=== PATIENT | male | born 1950 | race Caucasian/White ===

== ENCOUNTER 2021-03-13 20:01 | Inpatient (IN) | payer MEDICARE, OTHER ==
[~2021-03-13 20:01] MED LIST: CRESTOR40 MG PO; FLOMAX0.4 MG PO; GABAPENTIN600 MG PO; LISINOPRIL40 MG PO; LITHIUM300 MG PO; OXYBUTYNIN CHLO10 MG PO; OXYCONTIN20 MG PO; PERCOCET 10-321 EACH PO; VOLTAREN **OUT50 MG PO
[2021-03-13 20:34] LABS: BASOPHIL 0.3 % (0-2); EOSINOPHIL 0.6 % (0-7); HCT 36.5 % (42.0-52.0); HGB 11.4 g/dl (13.2-18.0); LYMPHOCYTE 4.5 % (15-48); MCH 30.8 pg (25.0-31.0); MCHC 31.2 g/dL (32.0-36.0); MCV 98.6 fL (78.0-100.0); MONOCYTE 4.1 % (0-12); MPV 9.5 fL (6.0-9.5); NEUTROPHIL 90.2 % (41-80); NRBC 0; PLT 225 K/uL (150-400)
[2021-03-13 20:35] LABS: WBC 10.5 K/uL (4.0-10.5)
[2021-03-13 20:45] LABS: INR 1.08 (0.9-1.2); PROTHROMBIN TIME 13.3 SECONDS (11.4-13.6)
[2021-03-13 20:51] LABS: ALBUMIN 3.5 g/dL (3.4-5.0); BILIRUBIN - TOTAL 0.6 mg/dL (0.2-1.0); BUN/CREAT RATIO (CALC) 17.7 RATIO; CREATININE 2.15 mg/dL (0.67-1.17); GLOBULIN (CALCULATION) 2.7 g/dL; MAGNESIUM 2.8 mg/dL (1.8-2.4); TOTAL PROTEIN 6.2 g/dL (6.4-8.2)
[2021-03-13 20:56] LABS: BILIRUBIN NEGATIVE (NEGATIVE); BLOOD TRACE-LYSED Ery/uL (NEGATIVE); CLARITY CLEAR (CLEAR); COLOR YELLOW (YELLOW); GLUCOSE (U) NORMAL (NORMAL); LEUKOCYTES NEGATIVE Leu/uL (NEGATIVE); NITRITE NEGATIVE (NEGATIVE); PROTEIN TRACE (LOW) mg/dL (NEGATIVE); SPECIFIC GRAVITY <=1.005 (1.001-1.030); UROBILINOGEN 0.2 mg/dL (0.2-1.0)
[2021-03-13 20:59] LABS: SQUAMOUS EPITHELIAL CELLS RARE
[2021-03-13 21:00] LABS: LACTIC ACID 2.3 mmol/L (0.4-1.9)
[2021-03-14] MEDS ORDERED: NEURONTIN300 MG PO (04:35)
[2021-03-14] MEDS ORDERED: VOLTAREN **OUT50 MG PO (04:37)
[2021-03-14] MEDS ORDERED: OXYCONTIN20 MG PO (04:37)
[2021-03-14] MEDS ORDERED: PRINIVIL20 MG PO (04:38)
[2021-03-14] MEDS ORDERED: DITROPAN5 MG PO (04:39)
[2021-03-14] MEDS ORDERED: TROKENDI XR100 MG PO (04:42)
[2021-03-14] MEDS ORDERED: LITHIUM300 MG PO (04:42)
[2021-03-14] MEDS ORDERED: PEPCID AC20 MG PO (04:42)
[2021-03-14] MEDS ORDERED: TRAZODONE HCL150 MG PO (04:43)
[2021-03-14] MEDS ORDERED: CRESTOR40 MG PO (04:43)
[2021-03-14 06:01] LABS: BASOPHIL 0.2 % (0-2); EOSINOPHIL 0.1 % (0-7); HCT 37.9 % (42.0-52.0); HGB 12.3 g/dl (13.2-18.0); LYMPHOCYTE 2.5 % (15-48); MCH 31.1 pg (25.0-31.0); MCHC 32.5 g/dL (32.0-36.0); MCV 95.9 fL (78.0-100.0); MONOCYTE 8.6 % (0-12); MPV 9.6 fL (6.0-9.5); NEUTROPHIL 87.8 % (41-80); NRBC 0; PLT 376 K/uL (150-400); RBC 3.95 M/uL (4.70-6.00); RDW 14.1 % (11.5-14.0)
[2021-03-14 06:06] LABS: WBC 29.3 K/uL (4.0-10.5)
[2021-03-14 06:20] LABS: ALBUMIN 2.9 g/dL (3.4-5.0); BILIRUBIN - TOTAL 0.5 mg/dL (0.2-1.0); BUN/CREAT RATIO (CALC) 18.3 RATIO; CREATININE 1.31 mg/dL (0.67-1.17); GLOBULIN (CALCULATION) 2.6 g/dL; POTASSIUM 3.5 mmol/L (3.5-5.1); TOTAL PROTEIN 5.5 g/dL (6.4-8.2)
--- NOTE | 2021-03-15 10:50 | NUR ---
Mr and Mrs Siddiqui share a home together. Mr. Siddiqui is a . He is followed by Dr. Blankenship and at [facility]. He has a rw, cane, scooter, and elevated commode. Spouse reports the home to be handicapped accessible. - The rigoberto were edcated to Aid and Attendance through [facility]. - Mr. Siddiqui was transferred to [facility].
== END 2021-03-14 22:21 | disposition other institution (70) | DRG 871 ==
LOC: FER 20:01 → FICU 22:04
PROVIDERS: Emergency Medicine; Nurse Practitioner; ADMIT Internal Medicine
PROC: 05H533Z Insertion of Infusion Device into Right Subclavian Vein, Percutaneous Approach (ICD-10-PCS; principal; 2021-03-13)
PROC: 3E033XZ Introduction of Vasopressor into Peripheral Vein, Percutaneous Approach (ICD-10-PCS; 2021-03-13)
DX: A41.9 Sepsis, unspecified organism (principal); R65.21 Severe sepsis with septic shock; G03.9 Meningitis, unspecified; I69.351 Hemiplegia and hemiparesis following cerebral infarction affecting right dominant side; N17.9 Acute kidney failure, unspecified; I95.9 Hypotension, unspecified; T43.595A Adverse effect of other antipsychotics and neuroleptics, initial encounter; F39 Unspecified mood [affective] disorder; Z96.643 Presence of artificial hip joint, bilateral; Z20.822 Contact with and (suspected) exposure to COVID-19; F01.50 Vascular dementia, unspecified severity, without behavioral disturbance, psychotic disturbance, mood disturbance, and anxiety; E86.0 Dehydration; I11.0 Hypertensive heart disease with heart failure; I50.9 Heart failure, unspecified; E78.00 Pure hypercholesterolemia, unspecified; I48.91 Unspecified atrial fibrillation; R19.7 Diarrhea, unspecified; K82.8 Other specified diseases of gallbladder; Z98.890 Other specified postprocedural states; Z79.899 Other long term (current) drug therapy
CPT/HCPCS: 36415; 36600; 70450; 71045; 71250; 76705; 80053; 80178; 81001; 82140; 82803; 83605; 83735; 84100; 84145; 84484; 85025; 85610; 85730; 87040; 87088; 93005; 94010; 96365; 96368; C9113; J1170; J1650; J2060; J2543; J3010; J7030; U0002